=== PATIENT | male | born 1970 | race Two or more races ===

== ENCOUNTER 2020-12-02 19:36 | Emergency (ER) | payer SELFPAY ==
[~2020-12-02] VITALS: Ht 160 cm; Wt 63.5 kg
[2020-12-03] MEDS ORDERED: ACETAMINOPHEN/CODEINE#3 (300/30mg) TAB PO ONE (00:30)
[2020-12-03] MEDS ORDERED: ONDANSETRON ODT 4 MG TAB PO ONE (00:30)
[2020-12-03 05:54] VITALS: BP 149/75
== END 2020-12-03 05:59 | disposition home or self-care (01) ==
LOC: ER 19:36
DX: S39.012A Strain of muscle, fascia and tendon of lower back, initial encounter (principal); S20.212A Contusion of left front wall of thorax, initial encounter; Y08.89XA Assault by other specified means, initial encounter; Y93.89 Activity, other specified; Y92.89 Other specified places as the place of occurrence of the external cause; Y99.8 Other external cause status
CPT/HCPCS: 71250; 74176; 99285; Q0162